=== PATIENT | female | born 1990 | race Two or more races ===

== ENCOUNTER 2017-04-10 21:29 | Emergency (ER) | payer SELFPAY ==
[~2017-04-10] VITALS: Ht 160 cm; Wt 81.6 kg
[2017-04-10 21:54] VITALS: BP 142/77
[2017-04-10 23:02] LABS: Urine Bilirubin Negative (Negative); Urine Blood 3+ /uL (Negative); Urine Ca Oxalate Crystal FEW (None Seen); Urine Color PINK (Yellow); Urine Glucose Normal (Normal); Urine Ketone 1+ (Negative); Urine Mucus FEW (None Seen); Urine Nitrite Negative (Negative); Urine RBC 3315 /hpf (0 - 4); Urine Squamous Epithelial Cell MOD /hpf (<5); Urine pH 6.5 (5.0-8.0)
== END 2017-04-10 23:06 | disposition left against medical advice (07) ==
LOC: ER 21:35
DX: R10.32 Left lower quadrant pain (principal); R11.2 Nausea with vomiting, unspecified; Z53.21 Procedure and treatment not carried out due to patient leaving prior to being seen by health care provider
CPT/HCPCS: 81001; 81025